=== PATIENT | female | born 1940 | race Caucasian/White ===

== ENCOUNTER → 2017-03-04 | Outpatient (CLI) | payer MEDICARE, BC ==
--- NOTE | 2017-03-04 14:51 | US ---
EXAMINATION TYPE: US venous doppler duplex LE LT DATE OF EXAM: 03/04/2017 2:37 PM COMPARISON: NONE CLINICAL HISTORY: I82.402 ACUTE EMBOLSIM AND THROMBOSIS OF DEEP VEIN LT LOWER. SIDE PERFORMED: left TECHNIQUE: The lower extremity deep venous system is examined utilizing real time linear array sonog lacey with graded compression, doppler sonography and color-flow sonography. VESSELS IMAGED: External Iliac Vein (EIV) Common Femoral Vein Deep Femoral Vein Greater Saphenous Vein * Femoral Vein Popliteal Vein Small Saphenous Vein * Proximal Calf Veins (* superficial vessels) Grayscale, color doppler, spectral doppler imaging performed of the deep veins of the lower extremity . There is normal flow, compressibility, vascular waveforms. Left Leg: Negative for DVT IMPRESSION: No evidence for DVT.
== END | disposition home or self-care (01) ==
LOC: RADUSWWP 14:14
PROVIDERS: ATTEND Family Medicine
DX: I82.402 Acute embolism and thrombosis of unspecified deep veins of left lower extremity (principal)

== ENCOUNTER → 2017-11-15 | Outpatient (CLI) | payer MEDICARE, BC ==
--- NOTE | 2017-11-15 18:57 | CT ---
EXAMINATION TYPE: CT brain wo con DATE OF EXAM: 11/15/2017 COMPARISON: NONE HISTORY: Double vision. CT DLP: 1094 mGycm Automated exposure control for dose reduction was used. FINDINGS: Ventricles and sulci appear normal. There is no mass effect nor midline shift. There is no sign of in tracranial hemorrhage. There is a 1 cm area of calcific density in the right internal capsule and ant erior right thalamus consistent with degenerative phenomenon. Calvarium is intact. IMPRESSION: NO ACUTE INTRACRANIAL ABNORMALITY. ANTERIOR RIGHT THALAMIC CALCIFICATION.
== END | disposition home or self-care (01) ==
LOC: RADCTMAIN 17:39
PROVIDERS: ATTEND Nurse Practitioner Adult Health
DX: G93.89 Other specified disorders of brain (principal); E11.9 Type 2 diabetes mellitus without complications
CPT/HCPCS: 70450

== ENCOUNTER → 2017-11-30 | Outpatient (CLI) | payer MEDICARE, BC ==
--- NOTE | 2017-12-01 12:09 | US ---
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 Double vision EXAM MEASUREMENTS: RIGHT: Peak Systolic Velocity (PSV) cm/sec ----- Right CCA: 73.8 ----- Right ICA: 95.2 ----- Right ECA: 111.7 ICA/CCA ratio: 1.3 RIGHT: End Diastole cm/sec ----- Right CCA: 21.5 ----- Right ICA: 30.3 ----- Right ECA: 18.2 LEFT: Peak Systolic Velocity (PSV) cm/sec ----- Left CCA: 85.3 ----- Left ICA: 81.7 ----- Left ECA: 81.7 ICA/CCA ratio: 1.0 LEFT: End Diastole cm/sec ----- Left CCA: 24.8 ----- Left ICA: 35.4 ----- Left ECA: 18.8 VERTEBRALS (direction of flow): Right Vertebral: Antegrade Left Vertebral: Antegrade Rhythm: Normal Moderate plaque right bifurcation. Mild plaque left bifurcation. NO evidence of significant stenosis at this time IMPRESSION: 1. Atheromatous plaquing without significant flow-limiting stenosis. 2. Anterior flow the bilateral vertebral arteries is evident. Criteria for Assigning % of Stenosis / Diameter reduction (Estimation based on the indirect measurements of the internal carotid artery velocities (ICA PSV). 1. Normal (no stenosis)=ICA PSV < 125 cm/s: ratio < 2.0: ICA EDV<40 cm/s. 2. Less than 50% stenosis=ICA PSV < 125 cm/s: ratio < 2.0: ICA EDV<40 cm/s. 3. 50 to 69% stenosis=ICA PSV of 125 to 230 cm/s: ration 2.0 ? 4.0: ICA EDV 40-100 cm/s. 4. Greater than 70% stenosis to near occlusion= ICA PSV > 230 cm/s: ratio > 4.0: ICA EDV > 100 cm/s. 5. Near occlusion= ICA PSV velocities may be low or undetectable: variable ratio and ICA EDV. 6. Total occlusion=unable to detect flow.
== END | disposition home or self-care (01) ==
LOC: RADUSWWP 15:41
PROVIDERS: ATTEND Psychiatry & Neurology Neurology
DX: I65.23 Occlusion and stenosis of bilateral carotid arteries (principal); G46.3 Brain stem stroke syndrome
CPT/HCPCS: 93880

== ENCOUNTER → 2017-12-08 | Outpatient (CLI) | payer MEDICARE, BC ==
[2017-12-08 12:03] LABS: Blood Urea Nitrogen 15 mg/dL (7-17)
[2017-12-08 17:14] LABS: Rheumatoid Factor 6 IU/mL (0-15)
[2017-12-08 17:34] LABS: Anti-DNA, DS unit <1.0 IU/mL; DNA Double-Stranded NEGATIVE (NEGATIVE)
[2017-12-09 11:35] LABS: Smooth Muscle Antibody 14 UNITS (<20)
[2017-12-13 01:41] LABS: Acetylchol Recept Bind Ab <0.30 nmol/L
== END | disposition home or self-care (01) ==
LOC: LABWHC1 11:10
PROVIDERS: ATTEND Psychiatry & Neurology Neurology
DX: G46.3 Brain stem stroke syndrome (principal); G70.00 Myasthenia gravis without (acute) exacerbation
CPT/HCPCS: 36415; 82565; 83516; 83519; 84520; 86038; 86225; 86431

== ENCOUNTER → 2017-12-10 | Outpatient (CLI) | payer MEDICARE, BC ==
--- NOTE | 2017-12-12 08:56 | MR ---
EXAMINATION TYPE: MR angio head wo con DATE OF EXAM: 12/10/2017 COMPARISON: NONE HISTORY: Brain tumor / Brain stem stroke syndrome TECHNIQUE: Utilizing 3-D [id number] intracranial MRA of the [place] was performed. FINDINGS: The vertebrobasilar and carotid systems are patent. Left vertebral artery is dominant and there is a small protuberance extending off the distal left ICA measuring 2 mm. IMPRESSION: 1. 2 mm protuberance off the distal left ICA may represent an infundibulum. Tiny aneurysm not exclude d 6 month follow-up could be obtained to confirm stability.
--- NOTE | 2017-12-12 09:09 | MR ---
EXAMINATION TYPE: MR brain wo/w con DATE OF EXAM: 12/10/2017 COMPARISON: NONE HISTORY: Brain tumor / Brain stem stroke syndrome TECHNIQUE: Multiplanar, multisequence images of the brain and brainstem is performed without and with IV contras t, utilizing 8.5 mL intravenous Gadavist . FINDINGS: Diffusion weighted images demonstrate no evidence of a recent infarct or other diffusion ab normality. There are changes of chronic sinusitis. No midline shift. Multifocal areas of abnormal signal the white matter nonspecific but most of microvascular ischemia. There is no enhancing mass or mass effect. There is a area of linear enhancement in the right basal g anglia most suggestive of a venous angioma. Within the right basal ganglia there is a area of abnormal signal suggestive of remote lacunar infarc tion. Mild generalized degenerative change. No enhancing mass or mass effect. IMPRESSION: 1. Mild generalized degenerative change with mild nonspecific white matter changes most typical remot e ischemia. No evidence of acute ischemia. 2. Incidental note made of a right-sided venous angioma. 3. Findings are compatible with a remote lacunar infarct in the basal ganglia.
== END | disposition home or self-care (01) ==
LOC: RADMRIMAIN 07:02
PROVIDERS: ATTEND Psychiatry & Neurology Neurology
DX: I67.1 Cerebral aneurysm, nonruptured (principal); D49.6 Neoplasm of unspecified behavior of brain; R90.89 Other abnormal findings on diagnostic imaging of central nervous system; Z86.73 Personal history of transient ischemic attack (TIA), and cerebral infarction without residual deficits
CPT/HCPCS: 70544; 70553; A9581

== ENCOUNTER → 2018-07-07 | Outpatient (CLI) | payer MEDICARE, BC ==
--- NOTE | 2018-07-07 14:59 | MR ---
EXAMINATION TYPE: MR angio head wo con DATE OF EXAM: 07/07/2018 COMPARISON: 12/10/2017 HISTORY: Aneurysm TECHNIQUE: Utilizing 3-D [id number]-ad-foyrel intracranial MRA of the [place] was performed. FINDINGS: The left vertebral artery is dominant. Vertebrobasilar system is unremarkable. Posterior ci rculation is maintained. The carotid arteries in their intracranial portion are patent. The medial 2 mm protuberance from the distal left internal cerebral artery just prior to the takeoff of the left m iddle cerebral artery is less evident on today's examination than the prior likely representing a sma ll infundibulum as this is similar on the right. No sizable aneurysm is seen throughout the intracran ial structures. [place] is intact. Prominent perivascular spaces versus old lacunar injuries are seen within the right basal ganglia. 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
== END | disposition home or self-care (01) ==
LOC: RADMRIMAIN 11:57
PROVIDERS: ATTEND Psychiatry & Neurology Neurology
DX: I67.1 Cerebral aneurysm, nonruptured (principal)
CPT/HCPCS: 70544

== ENCOUNTER → 2019-07-11 | Outpatient (CLI) | payer MEDICARE, BC ==
--- NOTE | 2019-07-11 22:28 | MR ---
EXAMINATION TYPE: MR angio head wo con DATE OF EXAM: 07/11/2019 COMPARISON: 07/07/2018, 12/10/2017 HISTORY: Cerebral aneurysm TECHNIQUE: Utilizing 3-D [id number] intracranial MRA of the [place] was performed. FINDINGS: The left vertebral artery is dominant. Vertebrobasilar system is unremarkable. Left vertebral artery dominant. Posterior circulation is maintained. The carotid arteries in their intracranial portion are patent. The 2 mm protuberance from the distal left internal cerebral artery is stable. The region of the [place] of the left ophthalmic artery Prominent perivascular spaces versus old lacunar injuries are seen within the right basal ganglia. IMPRESSION: 1. Stable 2 mm prominence of the distal left ICA near the origin of the posterior communicating arter y unchanged from prior exam of 2018 and 2017. Differential diagnosis continues to be tiny aneurysm. Versus infundibulum.
== END | disposition home or self-care (01) ==
LOC: RADMRIMAIN 16:37
PROVIDERS: ATTEND Psychiatry & Neurology Neurology
DX: I67.1 Cerebral aneurysm, nonruptured (principal)
CPT/HCPCS: 70544